=== PATIENT | male | born 1985 | race Caucasian/White ===

== ENCOUNTER 2025-04-01 02:13 | Emergency (ER) | payer MEDICARE, MEDICAID, SELFPAY ==
[2025-04-01 02:14] VITALS: BP 145/102; PULSE 95; RESP 18; TEMP 36.8; O2SAT 98; BMI 27.2
--- NOTE | 2025-04-01 02:30 | RAD_ITS ---
PROCEDURE: FINGER(S) MIN 2 VIEWS 04/01/2025 REASON FOR EXAM: INJURY TECHNIQUE: FINGER(S) MIN 2 VIEWS COMPARISON: No FINDINGS: Old 5th metacarpal fracture. Acute, intra-articular fracture, base of distal phalange, dorsal plate, with displacement. Adjacent soft tissue swelling. No dislocation. RAD/Finger(s) Min 2 Views IMPRESSION: 5th digit injury Reading [facility]
--- OUTSIDE RECORDS SUMMARY | 2025-04-01 02:32 | XMS RPT_ITS | CCD ---
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 Incidental dilated main pulmonary artery, can be seen with pulmonary arterial hypertension. Recommend clinical correlation. Multiple pulmonary nodules. Most severe: 4 mm left solid pulmonary nodule. Per Fleischner Society Guidelines, no routine follow-up imaging is recommended. These guidelines do not apply to immunocompromised patients and patients with cancer. Follow up in patients with significant comorbidities as clinically warranted. For lung cancer screening, adhere to Lung-RADS guidelines. Reference: Radiology. 2017; 284(1):228-43. I have personally reviewed the images of this examination agree with resident's findings and interpretation. Interpreted by: Shree Garcia Preliminary Report By: Jazmine Dominguez Electronically signed By Shree Garcia Dictated Date: 03/23/2023 10:33:39 PM Prelim Date: 03/23/2023 10:39:40 PM Sign Date: 03/23/2023 10:42:21 PM [facility] Note ORIGINAL EXAMINATION: CT OF THE ABDOMEN AND PELVIS WITH CONTRAST 03/23/2023 10:22 pm TECHNIQUE: CT of the abdomen and pelvis was performed with the administration of intravenous contrast. Multiplanar reformatted images are provided for review. Automated exposure control, iterative reconstruction, and/or weight based adjustment of the mA/kV was utilized to reduce the radiation dose to as low as reasonably achievable. COMPARISON: CT chest completed the same date HISTORY: ORDERING SYSTEM PROVIDED HISTORY: Reason for Exam: pain; trauma patient FINDINGS: Dedicated CT of the chest completed same date is reported separately. There is a tiny fat containing umbilical hernia. The liver, gallbladder, pancreas, spleen and both adrenal glands are unremarkable. Symmetric nephrograms. No cholelithiasis or hydronephrosis. No focal bladder wall thickening. The prostate is unremarkable. The small bowel is normal caliber and without evidence of inflammatory change. Scattered sigmoid diverticulosis without evidence of diverticulitis. The large bowel and appendix are unremarkable. No free air or free fluid. The aorta is normal caliber. No pathologically enlarged lymph nodes. IMPRESSION: No acute traumatic abnormality in the abdomen or pelvis. I have personally reviewed the images of this examination agree with resident's findings and interpretation. Interpreted by: Shree Garcia Preliminary Report By: Jazmine Dominguez Electronically signed By Shree Garcia Dictated Date: 03/23/2023 10:29:25 PM Prelim Date: 03/23/2023 10:33:30 PM Sign Date: 03/23/2023 10:43:30 PM Ordering Provider: [facility] 03-23-2023 Note ORIGINAL EXAMINATION: CT OF THE HEAD WITHOUT CONTRAST 03/23/2023 10:12 pm TECHNIQUE: CT of the head was performed without the administration of intravenous contrast. Automated exposure control, iterative reconstruction, and/or weight based adjustment of the mA/kV was utilized to reduce the radiation dose to as low as reasonably achievable. COMPARISON: CT head 02/21/2017 HISTORY: ORDERING SYSTEM PROVIDED HISTORY: Reason for Exam: pain; trauma patient FINDINGS: BRAIN/VENTRICLES: There is no acute intracranial hemorrhage, mass effect or midline shift. No abnormal extra-axial fluid collection. The ordonez-white differentiation is maintained without evidence of an acute infarct. There is no evidence of hydrocephalus. ORBITS: The visualized portion of the orbits demonstrate no acute abnormality. SINUSES: The visualized paranasal sinuses and mastoid air cells demonstrate no acute abnormality. SOFT TISSUES/SKULL: No acute abnormality of the visualized skull or soft tissues. IMPRESSION: No acute intracranial abnormality. Interpreted by: Shree Garcia Preliminary Report By: Shree Garcia Electronically signed By Shree Garcia Dictated Date: 03/23/2023 10:14:50 PM Prelim Date: 03/23/2023 10:16:44 PM Sign Date: 03/23/2023 10:16:44 PM Ordering Provider: EST[facility] 03-23-2023 Note ORIGINAL EXAMINATION: CT OF THE CERVICAL SPINE WITHOUT CONTRAST 03/23/2023 10:15 pm TECHNIQUE: CT of the cervical spine was performed without the administration of intravenous contrast. Multiplanar reformatted images are provided for review. Automated exposure control, iterative reconstruction, and/or weight based adjustment of the mA/kV was utilized to reduce the radiation dose to as low as reasonably achievable. COMPARISON: CT head and CT chest completed the same date HISTORY: ORDERING SYSTEM PROVIDED HISTORY: Reason for Exam: pain; trauma patient FINDINGS: BONES/ALIGNMENT: There is no acute fracture or traumatic malalignment. DEGENERATIVE CHANGES: No significant degenerative changes. SOFT TISSUES: There is no prevertebral soft tissue swelling. OTHER: The included lung apices are clear. The upper airway is patent. The visualized thyroid is unremarkable. There is no lymphadenopathy. IMPRESSION: No acute traumatic abnormality of the cervical spine. I have personally reviewed the images of this examination agree with resident's findings and interpretation. Interpreted by: Shree Garcia Preliminary Report By: Jazmine Dominguez Electronically signed By Shree Garcia Dictated Date: 03/23/2023 10:26:13 PM Prelim Date: 03/23/2023 10:29:17 PM Sign Date: 03/23/2023 10:44:41 PM Ordering Provider: [facility] 03-23-2023 Note ORIGINAL EXAMINATION: CT OF THE HEAD WITHOUT CONTRAST 03/23/2023 10:12 pm TECHNIQUE: CT of the head was performed without the administration of intravenous contrast. Automated exposure control, iterative reconstruction, and/or weight based adjustment of the mA/kV was utilized to reduce the radiation dose to as low as reasonably achievable. COMPARISON: CT head 02/21/2017 HISTORY: ORDERING SYSTEM PROVIDED HISTORY: Reason for Exam: pain; trauma patient FINDINGS: BRAIN/VENTRICLES: There is no acute intracranial hemorrhage, mass effect or midline shift. No abnormal extra-axial fluid collection. The ordonez-white differentiation is maintained without evidence of an acute infarct. There is no evidence of hydrocephalus. ORBITS: The visualized portion of the orbits demonstrate no acute abnormality. SINUSES: The visualized paranasal sinuses and mastoid air cells demonstrate no acute abnormality. SOFT TISSUES/SKULL: No acute abnormality of the visualized skull or soft tissues. IMPRESSION: No acute intracranial abnormality. Interpreted by: Shree Garcia Preliminary Report By: Shree Garcia Electronically signed By Shree Garcia Dictated Date: 03/23/2023 10:14:50 PM Prelim Date: 03/23/2023 10:16:44 PM Sign Date: 03/23/2023 10:16:44 PM Ordering Provider: [facility] 03-23-2023 Note ORIGINAL EXAMINATION: THREE XRAY VIEWS OF THE LEFT ELBOW 03/23/2023 10:11 pm COMPARISON: None. HISTORY: ORDERING SYSTEM PROVIDED HISTORY: Reason for Exam: elbow pain FINDINGS: No acute fracture or dislocation. No joint effusion. No significant degenerative changes. No significant soft tissue swelling. IMPRESSION: No acute osseous abnormality. I have personally reviewed the images of this examination agree with resident's findings and interpretation. Interpreted by: Shree Garcia Preliminary Report By: Jazmine Dominguez Electronically signed By Shree Garcia Dictated Date: 03/23/2023 10:19:51 PM Prelim Date: 03/23/2023 10:21:14 PM Sign Date: 03/23/2023 11:05:12 PM Ordering Provider: ESTHER BURKETT [facility] Evaluation + Plan note No data available for this section [facility] Summary Purpose Family History No Family History Records Found Advance Directives No Advanced Directives Records Found Additional Source Comments Patient Care team informatio n (unrecognized section and content) Care Team Personnel Name: PHYSICIAN, NONE Position: Physician Member Role: Primary Care Physician Care Team Related Persons Name: BROCK NAVARRETE (unrecognized sect ion and content) No Status Records Found INFORMATION SOURCE (unrecogn ized section and content) DATE CREATED AUTHOR 04/09/2023 [facility] ([place]) FOR RECORDS PERTAINING TO PATIENTS WHO ARE OR HAVE BEEN ENROLLED IN A CHEMICAL DEPENDENCY/SUBSTANCEABUSE PROGRAM, SOME INFORMATION MAY BE OMITTED. This clinical summary was aggregated from multiple sources. Caution should be exercised in using it in the provision of clinical care. This summary normalizes information from multiple sources, and as a consequence, information in this document may materially change the coding, format and clinical context of patient data. In addition, data may be omitted in some cases. CLINICAL DECISIONS SHOULD BE BASED ON THE PRIMARY CLINICAL RECORDS. [employer] [facility]. provides no warranty or guarantee of the accuracy or completeness of information in this document.
[2025-04-01 03:01] VITALS: BP 142/94; PULSE 88; RESP 16; TEMP 36.8; O2SAT 100
--- NOTE | 2025-04-01 03:01 | EDS_ITS ---
HPI History of Present Illness Chief Complaint: Upper Extremity Injury Informant: patient Narrative Narrative: [id number] male presents right pinky injury prior arrival. 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 Unable to straighten it. No history of fractures. No blood thinners. No past history. Prior similar symptoms: No PFSH PFSH Medical History Smoker Medical History no medical history Home Medications ?Medication ?Instructions ?Recorded ?Last Taken ?Type NK 04/01/25 Unknown History Allergy/AdvReac Type Severity Reaction Status Date / Time No Known Allergies Allergy Verified 04/01/25 02:14 Family History no significant family his Surgical History no surgical history Social History Smoking Status: Current every day smoker tobacco type: cigarettes ROS ROS ED Constitutional Constitutional ED: Denies fever(s) Cardiovascular Cardiovascular: Denies chest pain Respiratory/Chest Respiratory/Chest: Denies cough Gastrointestinal Gastrointestinal: Denies diarrhea or vomiting Musculoskeletal Musculoskeletal: Reports other Details: Right pinky injury. Integumentary Denies rash or wounds Neurologic Neurologic: Denies weakness EXAM Physical Exam Const Vital Signs: 04/01/25 02:14 04/01/25 03:01 Temperature 98.3 F 98.3 F Temperature Source Oral Pulse Rate 95 88 Respiratory Rate 18 16 Blood Pressure 145/102 H 142/94 H Blood Pressure Mean 116 110 Pulse Ox 98 100 Oxygen Delivery Method Room Air Positive well nourished and well developed General Appearance ED: well developed HEENT normocephalic and atraumatic Eyes General Eye ED: Yes normal appearance of both eyes Neck full ROM Resp normal respiratory effort and normal air movement Cardio regular rate and regular rhythm GI soft to palpation Extremity Extremity Narrative: Right hand pinky mallet deformity distal phalanx of the pinky. Skin is intact unable to straighten this. Tender palpation DIP. No subungual hematoma noted. Neuro oriented x3 Skin no rashes or lesions noted and no wounds MDM MDM MDM Narrative Medical decision making narrative: Interventions / MDM: Differential diagnosis: Mallet finger, fracture Diagnosis considered but do not suspect: No subungual hematoma. No open fracture. My EKG interpretation: N/A Imaging independently reviewed and interpreted by myself: Three-view x-ray right pinky: Avulsion fracture of proximal phalanx of the distal phalanx. External documents reviewed: N/A Test considered but not ordered:N/A ED course: Mallet deformity injury. Skin is intact. Patient declines any medicines. Three-view x-ray right pinky obtained. X-ray confirms distal phalanx fracture leading to mallet deformity. He is placed in finger splint. May use Tylenol or Motrin at home is given follow-up with hand specialist. Re-evaluation: stable Disposition discussed with patient/family/significant other: Patient Case discussed with consulting clinician: N/A This note was generated with [employer] dictation software. It may contain incorrect words, spelling, and punctuation that were not noted in checking the note before signing. Radiography Diagnostic Testing: Clinical Impression(s) from Imaging Studies Finger X-Ray 04/01/25 02:30 IMPRESSION: 5th digit injury Reading Location: [place] [id number] Discharge Plan Triage Chief Complaint: Upper Extremity Injury ED Provider: Bakari Chappell Dx/Rx/DC Orders Clinical Impression: Mallet deformity of right little finger, Closed avulsion fracture of distal phalanx of finger Instructions: ED Mallet Finger Prescriptions: No Action NK Primary Care Provider: Care Physician,No Primary Referrals: Dax Oakes MD [Med Staff - Active Staff] - 3-5 Days Care Physician,No Primary [Primary Care Provider] - Activity Restrictions/Additional Instructions: Fracture of your distal phalanx of your little finger leading to a mallet finger. Keep the splint on and do not remove. Tylenol Motrin as needed. Follow-up with Dr. Oakes. Print Language: Nicaraguan Disposition Disposition: Home, Self Care
== END 2025-04-01 03:04 | disposition home or self-care (01) ==
PROVIDERS: Emergency Provider Emergency Medicine; Visit Provider Emergency Medicine
DX: S62.636A Displaced fracture of distal phalanx of right little finger, initial encounter for closed fracture (principal); M20.011 Mallet finger of right finger(s); F17.210 Nicotine dependence, cigarettes, uncomplicated; W23.0XXA Caught, crushed, jammed, or pinched between moving objects, initial encounter
CPT/HCPCS: 73140; 99282